=== PATIENT | male | born 1985 | race Caucasian/White ===

== ENCOUNTER 2017-12-20 20:32 | Emergency (ER) | payer SELFPAY ==
[~2017-12-20] VITALS: Ht 182.9 cm; Wt 90.0 kg
[2017-12-20] MEDS ORDERED: HALOPERIDOL LACTATE 5 MG/ML AMP ONE (20:44)
[2017-12-20] MEDS: LORazepam 2 MG/ML VIAL ONE (20:44)
[2017-12-20 21:09] VITALS: BP 138/76; PULSE 118; RESP 16; TEMP 97.7; O2SAT 98
[2017-12-20] MEDS ORDERED: LORazepam 2 MG/ML VIAL IM ONE (21:15)
[2017-12-20] MEDS ORDERED: HALOPERIDOL LACTATE 5 MG/ML AMP IM ONE (21:15)
[2017-12-20 21:27] LABS: AUTOMATED NEUTROPHIL # 5.9 TH/MM3 (1.8-7.7); BASOPHIL # 0.1 TH/MM3 (0-0.2); BASOPHIL % 0.6 % (0.0-2.0); EOSINOPHIL # 0.1 TH/MM3 (0-0.4); EOSINOPHIL % 1.3 % (0.0-4.0); HEMATOCRIT 43.1 % (39.0-51.0); LYMPHOCYTE # 3.9 TH/MM3 (1.0-4.8); MEAN CELL VOLUME 96.3 FL (80.0-100.0); MEAN CORPUSCULAR HEMOGLOBIN 33.5 PG (27.0-34.0); MEAN CORPUSCULAR HGB CONC 34.8 % (32.0-36.0); MEAN PLATELET VOLUME 8.5 FL (7.0-11.0); MONO % 7.5 % (0.0-8.0); MONOCYTE # 0.8 TH/MM3 (0-0.9); NEUT % 54.6 % (16.0-70.0); PLATELET COUNT 261 TH/MM3 (150-450); RED BLOOD COUNT 4.47 MIL/MM3 (4.50-5.90); RED CELL DISTRIBUTION WIDTH 14.9 % (11.6-17.2); WHITE BLOOD COUNT 10.8 TH/MM3 (4.0-11.0)
[2017-12-20 21:42] LABS: ALT (GPT) 26 U/L (12-78); AST (GOT) 36 U/L (15-37); BICARBONATE 19.6 MEQ/L (21.0-32.0); BLOOD UREA NITROGEN 8 MG/DL (7-18); CALCIUM 8.8 MG/DL (8.5-10.1); CHLORIDE 110 MEQ/L (98-107); CREATININE 1.16 MG/DL (0.60-1.30); GLOMERULAR FILTRATION RATE 74 ML/MIN (>89); GLUCOSE,RANDOM 82 MG/DL (74-106); SODIUM (NA) 144 MEQ/L (136-145)
[2017-12-20 21:50] LABS: ALKALINE PHOSPHATASE 83 U/L (45-117); TOTAL BILIRUBIN ADULT 0.4 MG/DL (0.2-1.0); TOTAL PROTEIN 7.6 GM/DL (6.4-8.2)
[2017-12-20 22:06] VITALS: BP 135/87; PULSE 122; RESP 18; O2SAT 100
--- NOTE | 2017-12-20 22:29 | RADRPT ---
EXAM DATE: 12/20/2017 10:19 PM EDT AGE/SEX: 32 years / Male INDICATIONS: Shortness of breath. CLINICAL DATA: This is the patient's initial encounter. Patient reports that signs and symptoms have been present for 1 day and indicates a pain score of Nonresponsive. MEDICAL/SURGICAL HISTORY: Non-responsive. Non-responsive. COMPARISON: No prior [place] exams available for comparison. FINDINGS: A single AP view of the chest demonstrates the lungs to be symmetrically aerated without evidence of mass, infiltrate or effusion. The cardiomediastinal contours are unremarkable. Osseous structures a re intact. CONCLUSION: No evidence of acute cardiopulmonary process. Electronically signed by: Timothy De Leon MD 12/20/2017 10:28 PM EDT
[2017-12-20 23:39] VITALS: BP 111/69; PULSE 94; RESP 16; O2SAT 99
--- NOTE | 2017-12-21 00:16 | PD ---
HPI Chief Complaint: Medical Clearance Time Seen by Provider: 20:51 Travel History International Travel<30 days: No Contact w/Intl Traveler<30days: No Traveled to known affect area: No History of Present Illness HPI 32-year-old male brought to the ER for medical clearance in custody of police. Apparently he was jaywalking but then arrested for resisting. He is violent and aggressive on arrival and attacks the staff. He provides no useful history. [facility] Past Medical History Medical History: Unable to Obtain Past Surgical History Surgical History: Unable to Obtain Social History Alcohol Use: No (pt refuses to answer questions) Tobacco Use: No (pt refuses to answer questions) Allergies-Medications (Allergen,Severity, Reaction): Coded Allergies: No Known Allergies (Unverified , 12/20/17) Reported Meds & Prescriptions Reported Meds & Active Scripts Active No Active Prescriptions or Reported Medications Review of Systems ROS Limitations: Uncooperative, Psychotic Physical Exam Narrative GENERAL: Aggressive 32-year-old male, who is attacking the staff and violent. SKIN: Focused skin assessment warm/dry. HEAD: Atraumatic. Normocephalic. EYES: Pupils equal and round. NECK: Trachea midline. CARDIOVASCULAR: Regular rate and rhythm. No murmur appreciated. RESPIRATORY: No accessory muscle use. Clear to auscultation. Breath sounds equal bilaterally. GASTROINTESTINAL: Abdomen soft, non-tender. MUSCULOSKELETAL: No obvious deformities. No clubbing. No cyanosis. No edema. NEUROLOGICAL: Moving all extremities with purpose PSYCHIATRIC: Aggressive, paranoid Limited exam due to patient not cooperating Data Data Last Documented VS Vital Signs Date Time Temp Pulse Resp B/P (MAP) Pulse Ox O2 Delivery O2 Flow Rate FiO2 12/21/17 02:27 81 18 129/76 (93) 100 Room Air 12/20/17 21:09 97.7 Orders Orders Haloperidol Inj (Haldol Inj) (12/20/17 20:44) Lorazepam Inj (Ativan Inj) (12/20/17 20:44) Creatine Kinase (Cpk) (12/20/17 21:03) Complete Blood Count With Diff (12/20/17 21:03) Comprehensive Metabolic Panel (12/20/17 21:03) Urinalysis - C+S If Indicated (12/20/17 21:03) Drug Screen, Random Urine (12/20/17 21:03) Haloperidol Inj (Haldol Inj) (12/20/17 21:15) Lorazepam Inj (Ativan Inj) (12/20/17 21:15) Restraints Violent (12/20/17 21:42) Chest, Single Ap (12/20/17 ) Labs Laboratory Tests Test 12/20/17 21:00 White Blood Count 10.8 TH/MM3 Red Blood Count 4.47 MIL/MM3 Hemoglobin 15.0 GM/DL Hematocrit 43.1 % Mean Corpuscular Volume 96.3 FL Mean Corpuscular Hemoglobin 33.5 PG Mean Corpuscular Hemoglobin Concent 34.8 % Red Cell Distribution Width 14.9 % Platelet Count 261 TH/MM3 Mean Platelet Volume 8.5 FL Neutrophils (%) (Auto) 54.6 % Lymphocytes (%) (Auto) 36.0 % Monocytes (%) (Auto) 7.5 % Eosinophils (%) (Auto) 1.3 % Basophils (%) (Auto) 0.6 % Neutrophils # (Auto) 5.9 TH/MM3 Lymphocytes # (Auto) 3.9 TH/MM3 Monocytes # (Auto) 0.8 TH/MM3 Eosinophils # (Auto) 0.1 TH/MM3 Basophils # (Auto) 0.1 TH/MM3 CBC Comment DIFF FINAL Differential Comment Blood Urea Nitrogen 8 MG/DL Creatinine 1.16 MG/DL Random Glucose 82 MG/DL Total Protein 7.6 GM/DL Albumin 4.0 GM/DL Calcium Level 8.8 MG/DL Alkaline Phosphatase 83 U/L Aspartate Amino Transf (AST/SGOT) 36 U/L Alanine Aminotransferase (ALT/SGPT) 26 U/L Total Bilirubin 0.4 MG/DL Sodium Level 144 MEQ/L Potassium Level 3.8 MEQ/L Chloride Level 110 MEQ/L Carbon Dioxide Level 19.6 MEQ/L Anion Gap 14 MEQ/L Estimat Glomerular Filtration Rate 74 ML/MIN Total Creatine Kinase 199 U/L MDM Medical Decision Making Medical Screen Exam Complete: Yes Emergency Medical Condition: Yes Differential Diagnosis Drug abuse, psychosis Narrative Course Patient seen and evaluated in the emergency department. He arrived is very aggressive and violent with staff and subsequently sedated with Haldol and Ativan. After several hours he began to cooperate. He states that he acted out to avoid being arrested and brought to detention. Studies are negative, chest x-ray was negative, his labs were negative, despite several request he would not produce urine. I suspect he is concerned about a drug screen which is why he will not produce a urine sample. He is subsequently discharged. Diagnosis Primary Impression: Polysubstance abuse Additional Impression: Aggressive behavior Patient Instructions: General Instructions, Normal Exam (ED) Scripts No Active Prescriptions or Reported Meds Disposition: 01 DISCHARGE HOME Condition: Santos Marquez DO December 21, 2017 00:16
[2017-12-21 01:38] VITALS: BP 117/78; PULSE 87; RESP 18; O2SAT 100
[2017-12-21 02:27] VITALS: BP_SYST 129; BP_DIAS 38; BP_DIAS 76; PULSE 81; RESP 18; O2SAT 100
[2017-12-21 05:15] VITALS: BP 103/57; PULSE 80; RESP 16; O2SAT 99
[2017-12-21 05:34] LABS: BILIRUBIN, URINE NEG (NEG); BLOOD, URINE NEG (NEG); GLUCOSE,URINE NEG (NEG); KETONE, URINE TRACE mg/dL (NEG); MUCUS URINE MANY /lpf (OCC); NITRITE,URINE NEG (NEG); PH, URINE 5.5 (5.0-8.5); URINE COLOR YELLOW (YELLW/STRAW); URINE LEUKOCYTE ESTERASE NEG (NEG)
== END 2017-12-21 06:02 | disposition home or self-care (01) ==
LOC: NEPC 20:32
DX: F19.10 Other psychoactive substance abuse, uncomplicated (principal)
CPT/HCPCS: 71045; 80053; 80307; 81001; 82550; 85025; 96372; 99284; J1630; J2060